=== PATIENT | female | born 1955 | race Caucasian/White ===

== ENCOUNTER 2016-10-13 13:09 | Inpatient (IN) | payer BC ==
[~2016-10-13] VITALS: Ht 162.6 cm; Wt 157.2 kg
[2016-10-24] VITALS (13 sets, daily range): BP systolic 95–145; BP diastolic 43–76; PULSE 69–92; TEMP 97.6–97.8
[2016-10-24] MEDS ORDERED: BENICAR40 MG PO (03:15)
[2016-10-24] MEDS ORDERED: FOLIC ACID 40400 MCG PO (03:16)
[2016-10-24] MEDS ORDERED: LANTUS100 U/ML SQ (03:19)
[2016-10-24] MEDS ORDERED: MULTI VITAMINS1 TAB PO (03:19)
[2016-10-24] MEDS ORDERED: NAPROSYN500 MG PO (03:20)
[2016-10-24] MEDS ORDERED: PROTONIX 40MG T40 MG PO (03:21)
[2016-10-24] MEDS ORDERED: NOVOLOG FLEX100 U/ML SQ (03:21)
[2016-10-24] MEDS ORDERED: VITAMIN C500 MG PO (03:22)
[2016-10-24] MEDS ORDERED: XANAX .25M0.25 MG/TA PO (03:22)
[2016-10-24] MEDS ORDERED: TOPROL XL100 MG PO (03:22)
[2016-10-24] MEDS ORDERED: ASPIRIN 81M81 MG/TA2 PO (05:48)
[2016-10-24 10:42] LABS: HEMATOCRIT 36.4 % (37.0-47.0); HEMOGLOBIN 11.2 g/dl (12.5-16.0)
[2016-10-24 18:05] LABS: PH 5 (5-8); URINE APPEARANCE Cloudy; URINE BACTERIA Rare /hpf; URINE BILIRUBIN Negative (NEGATIVE); URINE BLOOD Negative (NEGATIVE); URINE COLOR Yellow; URINE GLUCOSE 1+ (NEGATIVE); URINE KETONE Trace (NEGATIVE); URINE UROBILINOGEN Negative (NEGATIVE); URINE WBC >50 /hpf
[2016-10-25] VITALS (7 sets, daily range): BP systolic 107–154; BP diastolic 60–78; PULSE 80–100; TEMP 97.6–98.6
[2016-10-25 07:48] LABS: HEMATOCRIT 32.2 % (37.0-47.0); HEMOGLOBIN 10.4 g/dl (12.5-16.0)
[2016-10-25 09:57] LABS: CREATININE, serum 0.4 mg/dL (0.52-1.25)
[2016-10-26 02:55] VITALS: BP 143/57; PULSE 86; TEMP 98.8
[2016-10-26 07:39] LABS: HEMATOCRIT 30.8 % (37.0-47.0)
[2016-10-26 07:50] VITALS: BP 155/79; PULSE 94; TEMP 98
[2016-10-26 11:31] VITALS: BP 141/59; PULSE 80; TEMP 97.9
[2016-10-26] MEDS ORDERED: ASPIRIN 32325 MG/TAB PO (16:50)
[2016-10-26] MEDS ORDERED: NORCO 325 MG-7.1 TAB PO (16:51)
[2016-10-26] MEDS ORDERED: NAPROSYN500 MG PO (16:51)
== END 2016-10-26 16:59 | disposition home or self-care (01) | DRG 470 ==
LOC: JCC 10-16 07:30 → SURG 10-24 05:17 → JCC 10-24 07:30 → SURG 10-26 16:59
PROVIDERS: Internal Medicine; Nurse Anesthetist, Certified Registered; Orthopaedic Surgery
PROC: 0SRC0J9 Replacement of Right Knee Joint with Synthetic Substitute, Cemented, Open Approach (ICD-10-PCS; principal; 2016-10-24 07:30)
DX: M17.11 Unilateral primary osteoarthritis, right knee (principal); N39.0 Urinary tract infection, site not specified; Z68.44 Body mass index [BMI] 60.0-69.9, adult; E11.9 Type 2 diabetes mellitus without complications; I10 Essential (primary) hypertension; Z87.891 Personal history of nicotine dependence; E66.01 Morbid (severe) obesity due to excess calories; Z79.4 Long term (current) use of insulin; D50.0 Iron deficiency anemia secondary to blood loss (chronic)
CPT/HCPCS: 99222; 99232-AI; C1713; C1776; J0690; J0696; J1815; J2250; J2370; J2405; J2704; J3010; J7030; J7120

== ENCOUNTER 2018-04-25 16:04 | Inpatient (IN) | payer BC ==
[~2018-04-25] VITALS: Ht 165.1 cm; Wt 166.0 kg
[~2018-04-25 16:04] MED LIST: ASPIRIN 32325 MG/TAB PO; ASPIRIN 81M81 MG/TA2 PO; BENICAR40 MG PO; FOLIC ACID 40400 MCG PO; LANTUS100 U/ML SQ; MULTI VITAMINS1 TAB PO; NAPROSYN500 MG PO; NORCO 325 MG-7.1 TAB PO; NOVOLOG FLEX100 U/ML SQ; PROTONIX 40MG T40 MG PO; TOPROL XL100 MG PO; VITAMIN C500 MG PO; XANAX .25M0.25 MG/TA PO
[2018-06-12] VITALS (12 sets, daily range): BP systolic 88–112; BP diastolic 45–83; PULSE 56–91; TEMP 97.2–98.7
[2018-06-12] MEDS ORDERED: BENICAR 20MG TA20 MG PO (00:06)
[2018-06-12] MEDS ORDERED: HCTZ 25MG TAB25 MG PO (00:07)
[2018-06-12] MEDS ORDERED: XANAX 1MG1 MG PO (00:08)
[2018-06-12] MEDS ORDERED: LASIX 40MG TABL40 MG PO (00:09)
[2018-06-12] MEDS ORDERED: PROAIR HFA0.09 MG/AC IH (00:10)
[2018-06-12] MEDS ORDERED: SYNTHROID0.05 MG/TA PO (00:12)
[2018-06-12] MEDS ORDERED: BUMEX2 MG PO (00:13)
[2018-06-12] MEDS ORDERED: ROBAXIN 75750 MG/TAB PO (00:13)
[2018-06-12] MEDS ORDERED: ZOCOR 10MG10 MG PO (00:14)
[2018-06-12] MEDS ORDERED: VITAMIN D 1001000 IU PO (00:17)
[2018-06-13 00:23] VITALS: BP 137/75; PULSE 90; TEMP 98.6
[2018-06-13 03:43] VITALS: BP 152/75; PULSE 89; TEMP 98.5
[2018-06-13 06:16] LABS: HEMOGLOBIN 10.8 g/dl (12.5-16.0)
[2018-06-13 06:26] LABS: HEMATOCRIT 34.2 % (37.0-47.0)
[2018-06-13 08:50] VITALS: BP 141/85; PULSE 65; TEMP 97.9
[2018-06-13 11:56] VITALS: BP 140/64; PULSE 85; TEMP 97.7
[2018-06-13 14:13] VITALS: BP 118/58; PULSE 89; TEMP 98.1
== END 2018-06-13 16:20 | disposition home or self-care (01) | DRG 470 ==
LOC: JCC 06-12 05:08
PROVIDERS: Orthopaedic Surgery; Physician Assistant
PROC: 0SRD0J9 Replacement of Left Knee Joint with Synthetic Substitute, Cemented, Open Approach (ICD-10-PCS; principal; 2018-06-12 07:30)
DX: M17.12 Unilateral primary osteoarthritis, left knee (principal); Z68.44 Body mass index [BMI] 60.0-69.9, adult; I10 Essential (primary) hypertension; E11.9 Type 2 diabetes mellitus without complications; Z87.891 Personal history of nicotine dependence; E66.01 Morbid (severe) obesity due to excess calories
CPT/HCPCS: A9284; C1713; C1776; J0690; J1815; J2250; J2274; J2370; J2405; J2704; J3370; J7030